=== PATIENT | female | born 1990 | race Caucasian/White ===

== ENCOUNTER 2023-11-20 11:05 | Emergency (ER) | payer BC, SELFPAY ==
[2023-11-20 11:13] VITALS: BP 130/108
[2023-11-20 11:39] LABS: % Basophils 0.5 % (0-2); % Eosinophils 0.5 % (0-6); % Immature Granulocytes 0.2 % (0-0.5); % Lymphocytes 30.6 % (20.5-51.1); % Monocytes 4.1 % (1.7-9.3); % Neutrophils 64.1 % (42.2-75.2); Absolute Basophils 0.1 10^3/uL (0-0.2); Absolute Eosinophils 0.1 10^3/uL (0-0.7); Absolute Lymphocytes 2.9 10^3/uL (1.2-3.4); Absolute Monocytes 0.4 10^3/uL (0.1-0.6); Absolute Neutrophils 6.1 10^3/uL (1.4-6.5); Hematocrit 41.8 % (37.0-47.0); Mean Corp Hgb Conc. 33.5 g/dL (33.0-37.0); Mean Corpuscular Hgb 28.2 pg (27.0-31.0); Mean Corpuscular Volume 84.1 fL (81.0-99.0); Mean Platelet Volume 9.6 fL (7.4-10.4); Nucleated Red Blood Cells % 0 %; Platelet Count 287 10^3/uL (130-400); Red Blood Cell Count 4.97 10^6/uL (4.20-5.40); Red Cell Dist. Width 12.8 % (11.5-14.5); White Blood Cell Count 9.5 10^3/uL (4.8-10.8)
[2023-11-20 11:40] LABS: Urine Albumin Negative (Neg - Trace); Urine Bilirubin Negative (Negative); Urine Character Clear (Clear); Urine Color Yellow; Urine Glucose Negative (Negative); Urine Ketone Negative (Negative); Urine Leukocyte Trace (Negative); Urine Nitrite Negative (Negative); Urine Occult Blood Negative (Negative); Urine Urobilinogen Negative (Neg - 1+)
[2023-11-20 11:49] LABS: HCG, Serum Qualitative Screen Negative
[2023-11-20 11:54] LABS: ALT (SGPT) 22 U/L (0-35); AST (SGOT) 22 U/L (14-36); Albumin 4.6 g/dl (3.5-5.0); Alkaline Phosphatase 66 U/L (38-126); Blood Urea Nitrogen 12 mg/dl (7-17); Calcium 10.1 mg/dl (8.4-10.2); Carbon Dioxide 26 mmol/L (22-30); Chloride 103 mmol/L (98-107); Glucose 140 mg/dl (70-99); Lipase 187 U/L (23-300); Potassium 4.2 mmol/L (3.5-5.1); Sodium 141 mmol/L (135-145); Total Bilirubin 0.5 mg/dl (0.2-1.3); Total Protein 7.3 g/dl (6.3-8.2); eGFR > 60.00
[2023-11-20 11:59] LABS: Urine Squamous Cell >30 /LPF (Few)
[2023-11-20 12:00] LABS: Urine Bacteria Few (Negative); Urine Red Blood Cell 0-2 /HPF (0-2)
[2023-11-20 12:47] VITALS: BP 110/74
[2023-11-20] MEDS: MOTRIN 600 MG PO (12:49)
[2023-11-20 14:23] VITALS: BP 118/74
--- NOTE | 2023-11-20 14:29 | ED.GENMED ---
History of Present Illness
General
Chief Complaint: Abdominal Pain
Source: patient
Exam Limitations: none
Time Seen by Provider: 11/20/23 11:54
Nursing documentation reviewed up to this point in time: agreed with
History of Present Illness
History of Present Illness:
33 Y/O F with no sig pmh
here with 4-5 days L sided low back pain that has been positional, worse with flexion and changing position and also wtih pain in her LLQ which she canot tell if it is wrapping aorund her abdomen or just a separate pain
she has had a little consitpation which is not unusual for her
she last had bm today and had some diarrhea
doesn't use stool softener
no nausea, vomiting, fever, urinary sypmtoms, vaginal sypmtoms
lmp 2 weeks ago
no trauma
does lift heavy boxes at work but doesn't recall injury
no chronic back pain
denies numbness/tignlingweakness in legs, incotniencne
Past History
Past History
ED Past Medical History: None
ED Past Surgical History: None
Social History
Tobacco: Non-smoker
Alcohol: None
Drug: None
Personal: Single
Living: with family
Employment: Employed
Review of Systems
Review of Systems
Allergies reviewed?: Yes
All Other Systems: Not applicable
Phy Exam
Physical Exam
Physical Exam:
GENERAL: Alert , in no apparent distress
EYE: pupils equal and reactive
NECK: Supple
ENT: o/p clr, mmm.
CARDIAC: Regular rate and rhythm .
LUNGS: Clear breath sounds bilaterally, no acute respiratory distress, no wheezes/rales/rhonchi
ABDOMEN: Soft, without focal tenderness, no r/g, no cvat, normal bowel sounds
L back tenderness, lateral lumbar and SI joint
NEUROLOGICAL: Alert and oriented, no focal neuro deficits
SKIN: Warm and dry, skin intact.
back: neg straight leg raise, no midlin tendneress, no cva tenderness
pain is wors ewith changing positions
MUSCULOSKELETAL: No edema, well perfused. neg audie's sign
PSYCH: Normal and appropriate interaction.
Course
Orders/Labs/Results
Orders:
Orders
11/20/23 11:19
Test Result ONCE
11/20/23 11:23
Complete Blood Count/With Diff Urgent
Comprehensive Metabolic Panel Urgent
HCG, Serum Qualitative Screen Urgent
Comment: Notify provider if positive test present
Lipase Urgent
11/20/23 11:26
Urinalysis Reflex To Culture Urgent
Date Specimen was Collected: 11/20/23
Time Specimen was Collected: 11:18
Urine Microscopic Reflex Cult Urgent
11/20/23 12:45
CT Abd/pel Without Iv Or Oral Urgent
Comment:
Reason For Exam: l back pain to llq
11/20/23 12:47
Ibuprofen [Motrin] 600 mg PO NOW STA
Abnormal Lab Results
11/20/23 11/20/23
11:23 11:26
Glucose 140 H mg/dl
(70-99)
Leukocyte Esterase Rfl Trace A
(Negative)
Urine Bacteria (Reflex) Few A
(Negative)
11/20/23 11:23
11/20/23 11:23
Vital Signs
Initial and Last Documented VS:
Initial Vital Signs
Temp Pulse Resp BP Pulse Ox
98.4 F 106 18 130/108 99
11/20/23 11:13 11/20/23 11:13 11/20/23 11:13 11/20/23 11:13 11/20/23 11:13
Last Documented Vital Signs
Temp Pulse Resp BP Pulse Ox
98.4 F 88 16 118/74 98
11/20/23 11:13 11/20/23 14:23 11/20/23 14:23 11/20/23 14:23 11/20/23 14:23
MDM/Problems Addressed
Differential Diagnosis Includes:
msk pain, kidney stone, constipation pain, ovarian cyst
MDM/Problems Addressed:
33 y/o F
L sided low back pain and LLq pain x 4-5 days worse with movement/changign position
doesn't radiate down legs, no numbness/tingling/weakness
no urinary symptoms, fever, vomiting, vaginal bleeding
took a few tabs motrin 400 without relief (4 in the past 4 days)
on exam pt has tendernes to L lateral lumbar region
pain with flexion
neg straight leg raise and no red flag symptoms for cauda equina
nontender abdomen
labs w/u normal wbc
urine is contaminated, and without urine sypmtoms do not feel this is clinically relevant
ctap stone search shows stone in the L kidney pole and R adnexal cyst
no findigns to expalin pain
likely MSK back pain
nsaids
flexeril
return precautions
*Critical Care Note
Total Time (30-74mins, 75-104mins- exclusive of procedures): Not Applicable
ED Attending Note
-
Portions of this chart may have been created with voice recognition software.� Occasional wrong word or��sound alike� substitutions may have occurred due to the inherent limitations of voice recognition software.
Discharge Plan
Departure
Patient Disposition: Home (Routine Discharge)
Date of Disposition: 11/20/23
Time of Disposition: 14:15
Patient with high blood pressure during this ER visit?: No
Condition: Fair
Covid-19: Not Applicable
Discharge Problem:
Back pain
Instructions: Low Back Pain (DC)
Prescriptions:
New
cyclobenzaprine 5 mg tablet
5 mg PO HS PRN (Reason: muscle spasm) Qty: 7 0RF
naproxen 500 mg tablet
500 mg PO BID PRN (Reason: Pain) Qty: 10 0RF
Referrals:
NONE,* [Family Provider] -
Stand Alone Forms: Return to Work
Activity Restrictions/Additional Instructions:
TRY ALEVE TWICE A DAY WITH FOOD FOR 3-5 DAYS NEEDED
TAKE FLEXERIL 5 MG AT NIGHT NEEDED FOR MUSCLE SPASM, THIS WILL MAKE YOU SLEEPY
AVOID HEAVY LIFTING FOR A FEW DAYS
FOLLOW UP WITH [facility] DOCTOR NEXT WEEK
RETURN TO THE ER FOR: SEVERE PAIN, LEG WEAKNESS, RASH, FEVER, URINARY SYPMTOMS OR ANY COCNERNS.
YOU INCIDENTALLY DO HAVE A KIDNEY STONE ON THE L SIDE IN YOUR KIDNEY - THESE DO NOT CAUSE PAIN UNTIL THEY ARE MOVING FROM YOUR KIDNEY AND IT IS PRETTY SEVERE PAIN USUALLY
YOU ALSO INCIDENTALLY HAVE A R SIDED OVARIAN CYST
Interventions
Interventions:
*Risk Screen - Suicide Last Done: 11/20/23 11:13
*General Assessment Last Done: 11/20/23 11:13
*Neglect/Abuse Screening Last Done: 11/20/23 11:13
ED- Fall Risk Assessment Last Done: 11/20/23 14:24
*ED COVID-19 Vaccine History Last Done: 11/20/23 12:09
*Nursing Disposition Last Done: 11/20/23 14:24
HD-Muikvb-Ehsyacceqr Assessment Last Done: 11/20/23 12:10
ED-Musculoskeletal Assessment Last Done: 11/20/23 12:10
Discharge Date and Time
Print Language: ITALIAN
== END 2023-11-20 14:31 | disposition home or self-care (01) ==
LOC: EMR 11:05
PROVIDERS: Emergency Medicine; EMERGENCY PHYSICIAN Emergency Medicine
DX: M54.50 Low back pain, unspecified (principal); R10.32 Left lower quadrant pain; N20.0 Calculus of kidney; N83.201 Unspecified ovarian cyst, right side
CPT/HCPCS: 99284; 74176; 80053; 81003; 81015; 83690; 84703; 85025

== ENCOUNTER → 2024-05-14 07:57 | Outpatient (REF) | payer BC, SELFPAY | LOC: RAD 07:57 | PROVIDERS: ATTENDING PHYSICIAN Otolaryngology | DX: M27.8 Other specified diseases of jaws (principal) | CPT/HCPCS: 70486 ==